=== PATIENT | male | born 1965 | race Caucasian/White ===

== ENCOUNTER 2017-05-29 19:38 | Emergency (ER) | payer BC ==
[2017-05-29 20:52] LABS: Troponin I Less than 0.010 ng/mL (< 0.028)
[2017-05-29 23:47] LABS: Troponin I Less than 0.010 ng/mL (< 0.028)
--- NOTE | 2017-05-30 03:14 | HP ---
CHIEF COMPLAINT: Chest pain. HISTORY OF PRESENT ILLNESS: This is a 51-year-old pleasant gentleman who was apparently in usual sta te of health, came into the hospital because of left-sided chest pain. He says this chest pain happe ns on and off occasionally, but today it started about 8:30 and then resolved. It also was accompani ed by some tingling and numbness in the left ring finger and little finger. The patient came in to [facility], he was evaluated, the patient had a CTA which showed no aortic dissection and CT brai n which was within normal limits. The patient denies any dizziness, palpitations. No fever, no coug h, no chills. PAST MEDICAL HISTORY: Diabetes, hypertension, hyperlipidemia. PAST SURGICAL HISTORY: Left shoulder surgery x3. SOCIAL HISTORY: Chews tobacco, denies alcohol or recreational drug use. ALLERGIES: To BYDUREON and CLINDAMYCIN. CURRENT MEDICATIONS: Include metformin 1000 mg p.o. b.i.d., Farxiga 5 mg p.o. daily, Tradjenta 5 mg p.o. daily, fenofibrate 150 p.o. daily, lisinopril 5 mg p.o. daily, simvastatin 10 mg p.o. daily, galaviz toprazole and Tresiba. FAMILY HISTORY: Negative for diabetes and hypertension. REVIEW OF SYSTEMS: Significant for chest pain, left arm tingling and numbness. There is no fever, n o chills, no headache, no appetite, no hearing loss, no latencies. No cough, no diarrhea, dysuria or polyuria. No memory or mood changes. No neck pain. PHYSICAL EXAMINATION: VITAL SIGNS: Blood pressure is 127/94, pulse is 106, respirations 16, temperature 98.6. GENERAL: The patient was lying in bed in no apparent distress. HEENT: Atraumatic and normocephalic. Pupils equal, round, react to light. Extraocular movements in tact. Mucous membranes moist. NECK: Supple. No JVD. CHEST: Breath sounds heard. No rales or rhonchi. HEART: S1, S2, no murmurs or gallops. ABDOMEN: Soft. EXTREMITIES: No cyanosis, clubbing, edema. Distal pulses present. NEUROLOGIC: Alert, awake, oriented. No cranial nerve deficits. No sensorimotor deficits. LABORATORY DATA: WBC count is 7.7, hemoglobin is 15, platelet count is 228. INR is 0.9, potassium i s 4.2. Sodium is 137, chloride is 99, anion gap is 17, BUN is 18, creatinine is 1.0. AST 16, ALT is 25. Troponin first set was normal. CK was normal. EKG was nonspecific as well and with normal sin us rhythm at 96 beats per minute. ASSESSMENT AND PLAN: 1. Chest pain, rule out acute coronary syndrome. The patient has bunch of stress risk factors. We will risk stratify him by doing a stress test. We will trend troponins. Echocardiogram and make rec ommendations as the clinical course evolves. 2. Chews tobacco. Patient has been counseled. 3. Hyperlipidemia, stable. 4. Hypertension, stable. 5. Diabetes. Insulin sliding scale. 6. Sequential compression devices for deep venous thrombosis prophylaxis. I will monitor the patien t and do the needful.
--- NOTE | 2017-05-30 03:57 | DIS ---
DATE OF ADMISSION: 05/29/2017 DATE OF DISCHARGE: 05/30/2017 DIAGNOSES ON DISCHARGE: 1. Chest pain, rule out acute coronary syndrome. 2. Diabetes. 3. Hypertension. 4. Hyperlipidemia. DISCHARGE DISPOSITION: Against medical advice. DISCHARGE MEDICATIONS: This patient's discharge medications are the same as admit medications. BRIEF HOSPITAL COURSE: A 51-year-old pleasant gentleman came into the hospital because of chest pain . His initial workup was negative. Because he had some personal things to take care of, he wanted t o leave. He said that he is going to follow up with his doctor tomorrow. I explained the risks of h is actions. He understood it. I told him to come back to the emergency room in case symptoms recur. Total time for this discharge took 35 minutes.
== END 2017-05-29 23:40 | disposition home or self-care (01) ==
LOC: ERS 19:38 → 2SE 22:19 → UNDOADMOB 22:19 → ERS 23:40 → 2SE 05-30 03:13 → ERHOLD 05-30 03:13
DX: R07.9 Chest pain, unspecified (principal); E11.9 Type 2 diabetes mellitus without complications; E78.5 Hyperlipidemia, unspecified; I10 Essential (primary) hypertension; F17.220 Nicotine dependence, chewing tobacco, uncomplicated; Z79.84 Long term (current) use of oral hypoglycemic drugs; Z79.899 Other long term (current) drug therapy
CPT/HCPCS: 36415; 93005; 94760; 96374; 99406

== ENCOUNTER 2024-03-09 17:56 | Emergency (ER) | payer BC ==
[~2024-03-09 17:56] MED LIST: Iopamidol-370 76% 500 ML MDV (1 ML CHARGE) ONE
[2024-03-09 18:59] LABS: #Basophils 0.05 10x3/uL (0.0-0.2); %Basophils 0.5 % (0.0-1.0); %Eosinophils 0.6 % (0.0-10.0); %Lymphocytes 26.8 % (21.0-51.0); %Monocytes 6.7 % (0.0-10.0); %Neutrophils 64.8 % (42.0-75.0); Hematocrit 48.7 % (42.0-52.0); Hemoglobin 15.4 g/dL (14.0-18.0); Mean Corpuscular HGB CONC 31.6 g/dL (32.0-36.0); Mean Corpuscular Hemoglobin 27.6 pg (27.0-31.0); Mean Corpuscular Volume 87.3 fL (78.0-98.0); Mean Platelet Volume 11.3 fL (7.4-10.4); Platelet Count 295 10x3/uL (130-400); RBC Distribution Width 12.8 % (11.5-14.5); Red Blood Cell (RBC) Count 5.58 mill/uL (4.70-6.10)
[2024-03-09 19:17] LABS: ALT (SGPT) 18 U/L (8-55); AST (SGOT) 12 U/L (5-34); Albumin 4.2 g/dL (3.5-5.0); Alkaline Phosphatase 72 U/L (40-110); Anion Gap 15 mmol/L (10-20); BUN (Urea Nitrogen) 16 mg/dL (8.4-25.7); Bilirubin, Total 0.9 mg/dL (0.2-1.2); Calc. Creatinine Clearance 0 mL/min (70-130); Calcium 9.8 mg/dL (7.8-10.44); Carbon Dioxide 25 mmol/L (22-29); Chloride 103 mmol/L (98-107); Estimated GFR 91; Glucose 160 mg/dL (70-105); Potassium 4.3 mmol/L (3.5-5.1); Protein, Total 7.2 g/dL (6.0-8.3); Sodium 139 mmol/L (136-145)
[2024-03-09 19:20] LABS: Troponin I Less than 0.010 ng/mL (< 0.028)
== END 2024-03-09 21:43 | disposition home or self-care (01) ==
LOC: ERS 17:56
DX: K29.00 Acute gastritis without bleeding (principal); E11.9 Type 2 diabetes mellitus without complications; I10 Essential (primary) hypertension; F17.220 Nicotine dependence, chewing tobacco, uncomplicated
CPT/HCPCS: 36415; 71045; 71275; 74177; 93005; Q9967